=== PATIENT | male | born 1955 ===

== ENCOUNTER 2018-10-03 13:02 | Emergency (ER) | payer SELFPAY ==
--- NOTE | 2018-10-03 13:19 | UC ---
Skin Complaint HPI - HPI Summary HPI Summary: 63 yo male presents with dog bite. He tells me that he was out running today and a dog got loose from a yard and bit him. He sustained a bite to his right hand and right posterior knee. Pt filed a police report and had attention by EMS. He tells me that his last tetanus shot was around 2011 he thinks. EMS irrigated the areas and applied a bandaged - suggested he come to be evaluated. He was able to obtain vaccinations records from the dog's electro mechanical technician who was available at the time. - History of Current Complaint Time Seen by Provider: 10/03/18 13:18 Stated Complaint: DOG BITE Hx Obtained From: Patient Onset/Duration: Sudden Onset Onset Severity: Mild Current Severity: Mild Pain Intensity: 2 Pain Scale Used: 0-10 Numeric - Allergy/Home Medications Allergies/Adverse Reactions: Allergies Allergy/AdvReac Type Severity Reaction Status Date / Time No Known Allergies Allergy Verified 10/03/18 13:25 PMH/Surg Hx/FS Hx/Imm Hx - Additional Past Medical History Additional PMH: None - Family History Known Family History: Positive: None - Social History Occupation: Employed Full-time Lives: With Family Alcohol Use: Occasionally Substance Use Type: None Smoking Status (MU): Never Smoked Tobacco Review of Systems All Other Systems Reviewed And Are Negative: Yes Constitutional: Positive: Negative Skin: Positive: Other - Right hand and posterior knee dog bite Respiratory: Positive: Negative Cardiovascular: Positive: Negative Neurovascular: Positive: Negative Neurological: Positive: Negative Psychological: Positive: Negative Physical Exam - Summary Physical Exam Summary: GENERAL: NAD. WDWN. No pain distress. SKIN: RIGHT HAND: between dorsal aspect of thumb MC and index MC there is 4-5mm puncture wound with scant bleeding. Appears clean. RIGHT posterior knee: 2.0cm vertical by 3mm width linear abrasion without puncture wound. NECK: Supple. Nontender. No lymphadenopathy. CHEST: No accessory muscle use. Breathing comfortably and in no distress. CV: Pulses intact. Cap refill <2seconds MSK: Right hand and all fingers FROM. Pediatric Critical Care Nurse strength intact. Right knee FROM without pain. NEURO: Alert. PSYCH: Age appropriate behavior. Triage Information Reviewed: Yes Vital Signs: Vital Signs: Temp Pulse Resp BP Pulse Ox 99 F 56 16 121/78 99 10/03/18 13:20 10/03/18 13:20 10/03/18 13:20 10/03/18 13:20 10/03/18 13:20 Vital Signs Reviewed: Yes Course/Dx - Course Course Of Treatment: Wounds were irrigated with NS. tdap updated today. Wounds dressed with telfa. Rx for augmentin for prophylactic infection. F/u with health department. - Diagnoses Provider Diagnosis: Dog bite Discharge - Sign-Out/Discharge Documenting (check all that apply): Patient Departure All imaging exams completed and their final reports reviewed: No Studies - Discharge Plan Condition: Stable Disposition: HOME Prescriptions: Amoxicillin/Clavulanate TAB* [Augmentin TAB 875*] 875 mg PO BID #14 tab Patient Education Materials: Animal Bite (ED) Referrals: Shaw Lara MD [Primary Care Provider] - Additional Instructions: If you develop a fever, shortness of breath, chest pain, new or worsening symptoms - please call your PCP or go to the ED. 1) Change the dressing daily until well healed 2) Complete your antibiotic and apply ice to your knee and hand to reduce pain and swelling 3) Your tetanus was updated today - Billing Disposition and Condition Condition: STABLE Disposition: Home
[2018-10-03] MEDS ORDERED: Tetan/Diph/Pertus SYR(Tdap)* 0.5 ML SYR(BOOSTRIX) use SYR IM ONE (13:23)
[2018-10-03 13:25] VITALS: BP 121/78
== END 2018-10-03 13:42 | disposition home or self-care (01) ==
LOC: UCEAST 13:02
DX: S61.431A Puncture wound without foreign body of right hand, initial encounter (principal); S80.211A Abrasion, right knee, initial encounter; W54.0XXA Bitten by dog, initial encounter; Y93.02 Activity, running; Y92.9 Unspecified place or not applicable; Z23 Encounter for immunization
CPT/HCPCS: 90715; 99202; G0463